=== PATIENT | male | born 2000 | race African-American/Black ===

== ENCOUNTER 2023-12-03 22:41 | Emergency (ER) | payer OTHER ==
[2023-12-04 00:05] VITALS: BP 119/79; PULSE 68; RESP 18; TEMP 98.4; BMI 28.1
[2023-12-04] MEDS ORDERED: AMOX TR/POT CLAV 875MG/125MG TABLETS (FP) ONE (00:22)
[2023-12-04] MEDS: AMOX TR/POT CLAV 875MG/125MG TABLETS (FP) PO ONE (00:29)
== END 2023-12-04 02:08 | disposition home or self-care (01) ==
LOC: JER 22:41
DX: S61.251A Open bite of left index finger without damage to nail, initial encounter (principal); W50.3XXA Accidental bite by another person, initial encounter
CPT/HCPCS: 99283-25